=== PATIENT | male | born 1960 | race Caucasian/White ===

== ENCOUNTER 2017-01-21 09:22 | Emergency (ER) | payer MEDICAID ==
[2017-01-21 09:22] VITALS: PULSE 85; BMI 32.1
[2017-01-21] MEDS ORDERED: Oxycodone/Acetaminophen 5/325 mg Tab ONE (12:00)
[2017-01-21] MEDS ORDERED: Oxycodone/Acetaminophen 5/325 mg Tab PO STA (12:00)
--- NOTE | 2017-01-21 12:38 | C.PDOC ---
History Of Present Illness Juan Lozano is a 56 year old male, whose past medical history includes arthritis, asthma, atrial fibrillation, arrhythmia, CHF, and HTN, presents to the emergency department complaining of right knee pain that developed today. Patient reports he was walking all day yesterday in [place] and today the symptoms began. Patient notes there was no trauma. Patient denies fall, paresthesias, focal weakness, sensory deficit. Patient is with full range of motion in affected extremity. Chief Complaint (Nursing): Lower Extremity Problem/Injury History Per: Patient History/Exam Limitations: no limitations Onset/Duration Of Symptoms: Days (1 day ago) Current Symptoms Are (Timing): Still Present Severity: None - Hip Description Of Injury: denies: Fell - Knee Description Of Injury: denies: Fell - Ankle/Foot Description Of Injury: denies: Fell Past Medical History Reviewed: Historical Data, Nursing Documentation, Vital Signs Vital Signs: Last Vital Signs Temp 99.2 F 01/21/17 13:04 Pulse 106 H 01/21/17 13:04 Resp 20 01/21/17 13:04 BP 114/73 01/21/17 13:04 Pulse Ox 98 01/21/17 14:46 - Medical History PMH: Arthritis, Asthma, Atrial Fibrillation, Back Problems (Herniated Disc), Cardia Arrhythmia, CHF, HTN, Hypercholesterolemia, Kidney Stones, Chronic Kidney Disease, TIA Surgical History: Back Surgery, CABG, Coronary Stent, Pacemaker (2 yrs ago) - [facility] Procedures AUTOMATIC IMPLANT CARDIOVERTER/DEFIBRILLATOR (AICD) CHECK (02/24/15) INFLUENZA VACCINATION (06/13/13) VACCINATION NEC (06/13/13) Family History: States: Unknown Family Hx, CAD, Diabetes - Social History Hx Tobacco Use: No Hx Alcohol Use: No (socially) Hx Substance Use: Yes (15-20 years ago) - Immunization History Hx Tetanus Toxoid Vaccination: No Hx Influenza Vaccination: Yes Hx Pneumococcal Vaccination: No Review Of Systems Except As Marked, All Systems Reviewed And Found Negative. Constitutional: Negative for: Fever Cardiovascular: Negative for: Chest Pain Respiratory: Negative for: Shortness of Breath Gastrointestinal: Negative for: Abdominal Pain Musculoskeletal: Positive for: Leg Pain (right knee pain) Neurological: Negative for: Dizziness Physical Exam - Physical Exam Appears: Well, No Acute Distress Skin: Normal Color, Warm, Dry Head: Atraumatic, Normacephalic Eye(s): bilateral: Normal Inspection, PERRL, EOMI Nose: Normal Oral Mucosa: Moist Throat: Normal Neck: Normal Cardiovascular: Rhythm Regular Respiratory: Normal Breath Sounds Gastrointestinal/Abdominal: Normal Exam Back: Normal Inspection Extremity: Normal ROM, Tenderness (mild tenderness on the right knee), Other ( 3cm erythema on the right knee) ED Course And Treatment O2 Sat by Pulse Oximetry: 98 - Radiology CXR: Read By Radiologist Medical Decision Making Medical Decision Makin01/21/2017 Plans: -- Right knee X-ray -- Keflex, Mupirocin, and Oxycodone Progress Notes: Patient will follow up with orthopedist. 01/21/2017 12:50 Right knee X-ray: Creator : Juan Baldwin MD Findings:Mild medial compartment joint space narrowing. Mild patellofemoral compartment joint space narrowing. Small suprapatellar joint effusion. On the frontal view, there is some mild sclerosis along the posterior cortex of the proximal fibula, nonspecific. Impression: Mild medial compartment joint space narrowing. Mild patellofemoral compartment joint space narrowing. Small suprapatellar joint effusion. On the frontal view, there is some mild sclerosis along the posterior cortex of the proximal fibula, nonspecific. If pain persists, consider MRI. Knee immobilizer and crutches provided by CP. Patient was d/c home with PMD and Ortho follow up. Disposition - Disposition Referrals: Devin Nunez III, MD [Staff Provider] - Luis Fernando Robertson MD [Staff Provider] - Disposition: HOME/ ROUTINE Disposition Time: 12:35 Condition: STABLE Additional Instructions: Follow up with your PMD and Orthopedist within 1-2 days. Return to ED immediately if feel worse. Prescriptions: Mupirocin 2% Ointment [Bactroban Ointment] 1 appl TP BID #1 tube Cephalexin [cephalexin] 500 mg PO Q6 #28 cap oxyCODONE/Acetaminophen [Percocet 5/325 mg Tab] 1 tab PO QID PRN #20 tab PRN Reason: Pain Instructions: Knee Pain (ED) Forms: [facility] (Frisian) - Clinical Impression Clinical Impression: Knee pain - Scribe Statement The provider has reviewed the documentation as recorded by the Scribe 01/21/2017 Scribe Attestation: Maisha Alstoniblupe Attestation: All medical record entries made by the Scribe were at my direction and personally dictated by me. I have reviewed the chart and agree that the record accurately reflects my personal performance of the history, physical exam, medical decision making, and the department course for this patient. I have also personally directed, reviewed, and agree with the discharge instructions and disposition.
--- NOTE | 2017-01-21 12:45 | RAD ---
Right knee three views History: Pain. Comparison: None available. Findings: Mild medial compartment joint space narrowing. Mild patellofemoral compartment joint space narrowing. Small suprapatellar joint effusion. On the frontal view, there is some mild sclerosis along the posterior cortex of the proximal fibula, nonspecific. Impression: Mild medial compartment joint space narrowing. Mild patellofemoral compartment joint space narrowing. Small suprapatellar joint effusion. On the frontal view, there is some mild sclerosis along the posterior cortex of the proximal fibula, nonspecific. If pain persists, consider MRI.
[2017-01-21 13:05] VITALS: BP 114/73; PULSE 106; RESP 20; TEMP 99.2
[2017-01-21 14:38] VITALS: O2SAT 98
== END 2017-01-21 13:10 | disposition home or self-care (01) ==
LOC: C.ER 09:22
DX: M25.561 Pain in right knee (principal)

== ENCOUNTER 2017-02-27 08:03 | Inpatient (IN) | payer MEDICARE, MEDICAID ==
[2017-02-27 08:04] VITALS: PULSE 85; BMI 32.1
[2017-02-27] MEDS ORDERED: Sodium Chloride 0.9% 1,000 ML IV ONE (08:19)
[2017-02-27] MEDS ORDERED: DiphenhydrAMINE 50 mg/ml Inj IVP STA (08:20)
[2017-02-27] MEDS ORDERED: Albuterol 0.083% Inhal Sol (2.5 mg/3 mL) UD INH STA (08:21)
[2017-02-27] MEDS ORDERED: DiphenhydrAMINE 50 mg/ml Inj ONE (08:22)
[2017-02-27] MEDS ORDERED: Albuterol 0.083% Inhal Sol (2.5 mg/3 mL) UD ONE (08:33)
[2017-02-27] MEDS ORDERED: Sodium Chloride 0.9% 1,000 ML ONE (08:33)
--- NOTE | 2017-02-27 08:34 | C.PDOC ---
History Of Present Illness NEW ONSET TONGUE, MOUTH SWELLING AND DYSPHAGIA SINCE LAST NIGHT. CONTINUOUS, WORSENING THIS MORNING. ON LISINOPRIL. LAST DOSE LAST NIGHT. +VOICE CHANGE. HO ASTHMA BUT DENIES ASTHMA EXAC. DENIES ITCH, OTHER ASSOC SWELL. NPO SINCE 0700 past medical history includes arthritis, asthma, atrial fibrillation, arrhythmia , CHF, and HTN EXAM MILD DIST NONTOXIC HEENT +ANGIOEDEMA LIPS, TONGUE. UNABLE TO VISUALIZE UVULA. NO DROOL. +SCRATCHY VOICE. MMM NECK SUPPLE, NO STRIDOR LUNGS CTA B/L NO W/R/R CV RRR NO EDEMA NO HIVES WARM DRY REMAINDER NEG Time Seen by Provider: 02/27/17 08:18 Chief Complaint (Nursing): Allergic Reaction History Per: Patient History/Exam Limitations: no limitations Onset/Duration Of Symptoms: Days Current Symptoms Are (Timing): Worse Possible Cause: Unknown Associated Symptoms: Swelling Recent travel outside of the [place]: No Past Medical History Reviewed: Historical Data, Nursing Documentation, Vital Signs Vital Signs: Last Vital Signs Temp 98.4 F 02/27/17 08:14 Pulse 84 02/27/17 09:44 Resp 18 02/27/17 09:44 BP 125/83 02/27/17 09:44 Pulse Ox 95 02/27/17 09:50 - Medical History PMH: Arthritis, Asthma, Atrial Fibrillation, Back Problems (Herniated Disc), Cardia Arrhythmia, CHF, HTN, Hypercholesterolemia, Kidney Stones, Chronic Kidney Disease, TIA Surgical History: Back Surgery, CABG, Coronary Stent, Pacemaker (2 yrs ago) - [facility] Procedures AUTOMATIC IMPLANT CARDIOVERTER/DEFIBRILLATOR (AICD) CHECK (02/24/15) INFLUENZA VACCINATION (06/13/13) VACCINATION NEC (06/13/13) Family History: States: CAD, Diabetes - Social History Hx Tobacco Use: No Hx Alcohol Use: No (socially) Hx Substance Use: Yes (15-20 years ago) - Immunization History Hx Tetanus Toxoid Vaccination: No Hx Influenza Vaccination: Yes Hx Pneumococcal Vaccination: No Review Of Systems Except As Marked, All Systems Reviewed And Found Negative. Constitutional: Negative for: Fever, Chills ENT: Positive for: Other (TONGUE, MOUTH SWELLING; DYSPHAGIA) Cardiovascular: Negative for: Chest Pain Respiratory: Negative for: Cough, Shortness of Breath, Wheezing Gastrointestinal: Negative for: Nausea, Vomiting, Abdominal Pain Musculoskeletal: Negative for: Neck Pain Skin: Negative for: Rash Neurological: Negative for: Headache, Dizziness Physical Exam - Physical Exam Appears: Non-toxic, Other (MILD DISTRESS) Skin: Warm, Dry, Other (NO HIVES ) Head: Atraumatic, Normacephalic, Other Eye(s): bilateral: Normal Inspection, PERRL, EOMI Ear(s): Bilateral: Normal Nose: Normal Oral Mucosa: Moist Tongue: Other ( +ANGIOEDEMA ) Lips: Other ( +ANGIOEDEMA ) Throat: Other (UNABLE TO VISUALIZE UVULA. NO DROOL. +SCRATCHY VOICE. ) Neck: Normal ROM, Supple Chest: Symmetrical Cardiovascular: Rhythm Regular, No Edema Respiratory: Normal Breath Sounds, No Rales, No Rhonchi, No Stridor, No Wheezing Gastrointestinal/Abdominal: Normal Exam, Soft Back: Normal Inspection Extremity: Normal ROM, Capillary Refill (< 2 SEC.) Neurological/Psych: Oriented x3, Normal Speech, Normal Cognition ED Course And Treatment - Laboratory Results Result Diagrams: 02/27/17 08:40 02/27/17 08:40 ECG: Interpreted By Wy ECG Rhythm: A Paced ECG Interpretation: No Acute Changes Rate From EC (BPM) O2 Sat by Pulse Oximetry: 95 (RA) Pulse Ox Interpretation: Normal - Radiology CXR: Interpreted by Wy CXR Interpretation: Yes: No Acute Disease Progress - Re-Evaluation Re-evaluation Note: 02/27/17 08:25 D/W DR SALDAÑA ANESTHESIA ASSISTANT [facility] ATTORNEY AWARE OF ER FINDINGS WILL EVAL IN ER 02/27/17 08:34 EXAM UNCH VSS. 02/27/17 08:48 D/W PMD WILL ADMIT ANESTHESIA RECOMMEND SURGERY CONSULT 02/27/17 08:55 SURGERY RESIDENT NOTIFIED 0 02/27/17 09:43 PS FEELS BETTER. VOICE UNCH ?IMPROVE ANGIOEDEMA. VSS. PENDING CALLBACK ICU 02/27/17 11:02 CLEARED FOR TELE S/P DR PRIYA BENJAMIN - Data Reviewed Data Reviewed: Lab, Diagnostic imaging, EKG, Old records - Critical Care Citical Care: Excluding Proc Time Critical Care Time: 120 minutes - Continuity of Care Discussed patient case with:: Patient, PMD Discussed pt. case with information systems consultant/specialty: Anesthesiology, General Surgery Disposition Counseled Patient/Family Regarding: Studies Performed, Diagnosis - Disposition Disposition: HOSPITALIZED Disposition Time: 09:49 Condition: STABLE Forms: [employer] (Khmer) - POA Present On Arrival: None - Clinical Impression Clinical Impression: Angioedema, Allergy to NGUYEN inhibitors - Scribe Statement The provider has reviewed the documentation as recorded by the Scribe SM Provider Attestation: All medical record entries made by the Scribe were at my direction and personally dictated by me. I have reviewed the chart and agree that the record accurately reflects my personal performance of the history, physical exam, medical decision making, and the department course for this patient. I have also personally directed, reviewed, and agree with the discharge instructions and disposition. Decision To Admit - Pt Status Changed To: Hospital Disposition Of: Inpatient - Admit Certification Admit to Inpatient:: After my assessment, the patient will require hospitalization for at least two midnights. This is because of the severity of symptoms shown, intensity of services needed, and/or the medical risk in this patient being treated as an outpatient. - InPatient: Physician Admission Certification:: SEE NOTE - . Bed Request Type: Telemetry Admitting Physician: Luis Fernando Robertson Patient Diagnosis: Angioedema, Allergy to NGUYEN inhibitors
[2017-02-27 08:45] LABS: BASO % 0.4 % (0.0-2.0); EOS # 0.3 K/uL (0.0-0.7); EOS % 4.4 % (0.0-4.0); HEMATOCRIT 40.8 % (35.0-51.0); LYMPH # 2.1 K/uL (1.0-4.3); LYMPH % 29.1 % (20.0-40.0); MEAN CORPUSCULAR HEMOGLOBIN 33.7 pg (27.0-31.0); MEAN CORPUSCULAR HGB CONC 34.7 g/dL (33.0-37.0); MEAN PLATELET VOLUME 8.2 fL (7.2-11.7); MONO # 0.4 K/uL (0.0-0.8); MONO % 5.6 % (0.0-10.0); RED CELL DISTRIBUTION WIDTH 12.4 % (11.5-14.5); WHITE BLOOD COUNT 7.1 K/uL (4.8-10.8)
[2017-02-27 08:56] LABS: CHLORIDE 102 mmol/L (98-107); POTASSIUM 3.6 mmol/L (3.6-5.2); SODIUM 139 mmol/L (132-148)
[2017-02-27 08:57] LABS: INR 1.2
[2017-02-27 08:58] LABS: BILIRUBIN,TOTAL 0.9 mg/dL (0.2-1.3); GFR AFRICAN-AMERICAN > 60
[2017-02-27 08:59] LABS: ALB/GLOB RATIO 1.4 (1.0-2.1); ALKALINE PHOSPHATASE 55 U/L (38-126); ALT/SGPT 45 U/L (21-72); AST/SGOT 28 U/L (17-59); BLOOD UREA NITROGEN 15 mg/dL (9-20); CALCIUM 8.7 mg/dl (8.6-10.4); CARBON DIOXIDE 26 mmol/L (22-30); GLUCOSE,RANDOM 99 mg/dL (75-110); TOTAL PROTEIN 7.2 g/dL (6.3-8.3)
--- NOTE | 2017-02-27 10:35 | RAD ---
PROCEDURE: CHEST RADIOGRAPH, 1 VIEW HISTORY: Shortness of breath COMPARISON: 06/21/2015 FINDINGS: LUNGS: Patchy increased consolidative changes in the left mid to lower lung zone as well as the right infrahilar region. Right hilar prominence. Diffuse increased interstitial lung markings. Cardiomegaly. Left-sided pacemaker. PLEURA: As above. CARDIOVASCULAR: As above. OSSEOUS STRUCTURES: Degenerative changes in the spine and shoulders. VISUALIZED UPPER ABDOMEN: Normal. OTHER FINDINGS: None. IMPRESSION: Patchy increased consolidative changes in the left mid to lower lung zone as well as the right infrahilar region. Right hilar prominence. Diffuse increased interstitial lung markings. Cardiomegaly. Left-sided pacemaker.
--- NOTE | 2017-02-27 16:07 | CP.PCM.HP ---
History of Present Illness - History of Present Illness History of Present Illness: 56 years old male with PMHx significant tfor HTN, Atrial Fibrillation and AICD placement. Patient presents to ER for eyelids, tongue and lips swelling the night prior to admission. Patient denies headache, chest pain, shortness of breath, nausea, vomiting, abdominal pain, diarrhea or urinary symptoms. Present on Admission - Present on Admission Any Indicators Present on Admission: No Past Patient History - Infectious Disease Hx of Infectious Diseases: None - Past Medical History & Family History Past Medical History?: Yes - Past Social History Smoking Status: Former Smoker - CARDIAC Hx Atrial Fibrillation: Yes Hx Cardia Arrhythmia: Yes Hx Congestive Heart Failure: Yes Hx Hypercholesterolemia: Yes Hx Hypertension: Yes Hx Pacemaker: Yes (2 yrs ago) - PULMONARY Hx Asthma: Yes - NEUROLOGICAL Hx Transient Ischemic Attacks (TIA): Yes - HEENT Hx HEENT Problems: No - RENAL Hx Chronic Kidney Disease: Yes Hx Kidney Stones: Yes - ENDOCRINE/METABOLIC Hx Endocrine Disorders: No - HEMATOLOGICAL/ONCOLOGICAL Hx Blood Disorders: No - INTEGUMENTARY Hx Dermatological Problems: No - MUSCULOSKELETAL/RHEUMATOLOGICAL Hx Arthritis: Yes - GASTROINTESTINAL Hx Gastrointestinal Disorders: No - GENITOURINARY/GYNECOLOGICAL Hx Genitourinary Disorders: No - PSYCHIATRIC Hx Substance Use: Yes (15-20 years ago) - SURGICAL HISTORY Hx Coronary Artery Bypass Graft: Yes Hx Coronary Stent: Yes - ANESTHESIA Hx Anesthesia: Yes Hx Anesthesia Reactions: No Hx Malignant Hyperthermia: No Meds Allergies/Adverse Reactions: Allergies Allergy/AdvReac Type Severity Reaction Status Date / Time NGUYEN Inhibitors Allergy Severe ANAPHYLAXIS Verified 02/27/17 09:13 Physical Exam - Head Exam Head Exam: ATRAUMATIC, NORMAL INSPECTION, NORMOCEPHALIC - Eye Exam Eye Exam: EOMI, Normal appearance, PERRL - ENT Exam ENT Exam: Mucous Membranes Moist, Normal Exam - Neck Exam Neck exam: Positive for: Full Rom, Normal Inspection - Respiratory Exam Respiratory Exam: Clear to Auscultation Bilateral, NORMAL BREATHING PATTERN - Cardiovascular Exam Cardiovascular Exam: REGULAR RHYTHM, +S1, +S2 - GI/Abdominal Exam GI & Abdominal Exam: Normal Bowel Sounds, Soft - Extremities Exam Extremities exam: Positive for: full ROM, normal inspection - Back Exam Back exam: FULL ROM, NORMAL INSPECTION - Psychiatric Exam Psychiatric exam: Normal Affect, Normal Mood - Skin Skin Exam: Dry, Intact, Normal Color Results - Vital Signs Recent Vital Signs: Last Vital Signs Temp 98.4 F 02/27/17 08:14 Pulse 67 02/27/17 14:08 Resp 18 02/27/17 15:59 BP 120/69 02/27/17 14:08 Pulse Ox 98 02/27/17 15:59 - Labs Result Diagrams: 02/27/17 08:40 02/27/17 08:40 Assessment & Plan (1) Angioedema Assessment and Plan: Angioedema. Anaphylaxis. Most likely due to NGUYEN Inhibitor. H1 krystin. H2 antogonist. Corticosteroids. IV fluids. D/C Lisinopril. Status: Acute Priority: High Onset Date: ~02/26/17 (2) Atrial fibrillation with RVR Assessment and Plan: Continue same treatment. Status: Acute (3) HTN (hypertension) Assessment and Plan: D/C Lisinopril. Continue same treatment. Start Amlodipine. Status: Chronic
[2017-02-27 21:08] VITALS: RESP 20
--- NOTE | 2017-02-28 13:02 | CARD ---
APPROVED REPORT EKG Measurement Heart [id number] <Conclusion> Atrial-sensed ventricular-paced rhythm Abnormal ECG
--- NOTE | 2017-02-28 17:12 | CP.PCM.DIS ---
Provider - Provider Date of Admission: 02/27/17 11:03 Attending physician: Luis Fernando Robertson MD Time Spent in preparation of Discharge (in minutes): 30 Diagnosis - Discharge Diagnosis (1) Angioedema Status: Resolved Priority: High Onset Date: ~02/26/17 (2) Atrial fibrillation with RVR Status: Chronic (3) HTN (hypertension) Status: Chronic Hospital Course - Lab Results Lab Results: Most Recent Lab Values WBC 7.1 K/uL (4.8-10.8) 02/27/17 08:40 RBC 4.20 Mil/uL (4.40-5.90) L 02/27/17 08:40 Hgb 14.2 g/dL (12.0-18.0) 02/27/17 08:40 Hct 40.8 % (35.0-51.0) 02/27/17 08:40 MCV 97.0 fL (80.0-94.0) H D 02/27/17 08:40 MCH 33.7 pg (27.0-31.0) H 02/27/17 08:40 MCHC 34.7 g/dL (33.0-37.0) 02/27/17 08:40 RDW 12.4 % (11.5-14.5) 02/27/17 08:40 Plt Count 178 K/uL (130-400) 02/27/17 08:40 MPV 8.2 fL (7.2-11.7) 02/27/17 08:40 Neut % (Auto) 60.5 % (50.0-75.0) 02/27/17 08:40 Lymph % (Auto) 29.1 % (20.0-40.0) 02/27/17 08:40 Brown % (Auto) 5.6 % (0.0-10.0) 02/27/17 08:40 Eos % (Auto) 4.4 % (0.0-4.0) H 02/27/17 08:40 Baso % (Auto) 0.4 % (0.0-2.0) 02/27/17 08:40 Neut # 4.3 K/uL (1.8-7.0) 02/27/17 08:40 Lymph # 2.1 K/uL (1.0-4.3) 02/27/17 08:40 Brown # 0.4 K/uL (0.0-0.8) 02/27/17 08:40 Eos # 0.3 K/uL (0.0-0.7) 02/27/17 08:40 Baso # 0.0 K/uL (0.0-0.2) 02/27/17 08:40 PT 13.3 SECONDS (9.7-12.2) H 02/27/17 08:40 INR 1.2 02/27/17 08:40 APTT 35 SECONDS (21-34) H 02/27/17 08:40 Sodium 139 mmol/L (132-148) 02/27/17 08:40 Potassium 3.6 mmol/L (3.6-5.2) 02/27/17 08:40 Chloride 102 mmol/L (98-107) 02/27/17 08:40 Carbon Dioxide 26 mmol/L (22-30) 02/27/17 08:40 Anion Gap 14 (10-20) 02/27/17 08:40 BUN 15 mg/dL (9-20) 02/27/17 08:40 Creatinine 0.8 MG/DL (0.8-1.5) 02/27/17 08:40 Est GFR ( Amer) > 60 02/27/17 08:40 Est GFR (Non-Af Amer) > 60 02/27/17 08:40 Random Glucose 99 mg/dL (75-110) 02/27/17 08:40 Calcium 8.7 mg/dl (8.6-10.4) 02/27/17 08:40 Total Bilirubin 0.9 mg/dL (0.2-1.3) 02/27/17 08:40 AST 28 U/L (17-59) 02/27/17 08:40 ALT 45 U/L (21-72) 02/27/17 08:40 Alkaline Phosphatase 55 U/L (38-126) 02/27/17 08:40 Total Protein 7.2 g/dL (6.3-8.3) 02/27/17 08:40 Albumin 4.1 g/dL (3.5-5.0) 02/27/17 08:40 Globulin 3.0 gm/dL (2.2-3.9) 02/27/17 08:40 Albumin/Globulin Ratio 1.4 (1.0-2.1) 02/27/17 08:40 - Hospital Course Hospital Course: 56 years old female with PMHx significant for HTN and Atrial Fibrillation. Patient admitted for Angioedema due to NGUYEN Inhibitor. Patient remained on observation for 24 hours with IV fluids. Patient's condition improved and he was discharged home. Discontinue Lisinopril. Start Amlodipine. D /C Simvastatin. Start Atorvastatin. Start Benadryl + Cimetidine. Discharge Exam - Head Exam Head Exam: ATRAUMATIC, NORMAL INSPECTION, NORMOCEPHALIC - Eye Exam Eye Exam: EOMI, Normal appearance, PERRL - Respiratory Exam Respiratory Exam: Clear to PA & Lateral, NORMAL BREATHING PATTERN - Cardiovascular Exam Cardiovascular Exam: REGULAR RHYTHM, +S1, +S2 - GI/Abdominal Exam GI & Abdominal Exam: Normal Bowel Sounds, Unremarkable - Extremities Exam Extremities exam: full ROM - Neurological Exam Neurological exam: Alert, CN II-XII Intact, Normal Gait, Oriented x3, Reflexes Normal - Psychiatric Exam Psychiatric exam: Normal Affect, Normal Mood - Skin Skin Exam: Dry, Intact, Normal Color Discharge Plan - Discharge Medications Prescriptions: DiphenhydrAMINE [Benadryl] 50 mg PO BIDHS #30 cap Cimetidine 200 mg PO BID #30 tablet Atorvastatin [Lipitor] 40 mg PO HS #30 tab amLODIPine [Norvasc] 2.5 mg PO DAILY #30 tab - Follow Up Plan Condition: STABLE Disposition: HOME/ ROUTINE Instructions: Hypertension (DC), Hypertension (GEN)
[2017-02-28 18:46] VITALS: BP 113/78
[2017-02-28 18:50] VITALS: PULSE 84; TEMP 98; O2SAT 96
== END 2017-02-28 19:08 | disposition home or self-care (01) | DRG 916 ==
LOC: C.ER 08:03 → C.9E 11:03 → C.6T 14:34
PROVIDERS: ADMIT Internal Medicine; ATTEND Internal Medicine
DX: T78.3XXA Angioneurotic edema, initial encounter (principal); T46.4X5A Adverse effect of angiotensin-converting-enzyme inhibitors, initial encounter; E11.22 Type 2 diabetes mellitus with diabetic chronic kidney disease; I13.0 Hypertensive heart and chronic kidney disease with heart failure and stage 1 through stage 4 chronic kidney disease, or unspecified chronic kidney disease; I50.9 Heart failure, unspecified; I48.91 Unspecified atrial fibrillation; R13.10 Dysphagia, unspecified; I25.10 Atherosclerotic heart disease of native coronary artery without angina pectoris; E78.00 Pure hypercholesterolemia, unspecified; N18.9 Chronic kidney disease, unspecified; J45.909 Unspecified asthma, uncomplicated; Z86.73 Personal history of transient ischemic attack (TIA), and cerebral infarction without residual deficits; Z87.891 Personal history of nicotine dependence; Z87.442 Personal history of urinary calculi; Z95.1 Presence of aortocoronary bypass graft; Z95.5 Presence of coronary angioplasty implant and graft; Z95.810 Presence of automatic (implantable) cardiac defibrillator

== ENCOUNTER 2018-01-14 08:14 | Emergency (ER) | payer MEDICARE, MEDICAID ==
[2018-01-14 08:15] VITALS: PULSE 85; BMI 32.1
[2018-01-14 08:42] VITALS: PULSE 69; O2SAT 97
--- NOTE | 2018-01-14 08:56 | C.PDOC ---
History Of Present Illness 57 year old male with PMH of CAD, arthritis, hypertension, and pacemaker complains of headache for 3 days that radiates to left sided neck, left arm and down to his knee. Patient took aspirin with no relief. Pain is worse in the morning and at night. Additional complaints include fever of 101.3 two nights prior with feeling light headedness and blurred vision. He denies any shortness of breath, chest pain, cough, wheezing, nausea, vomiting or diarrhea. Time Seen by Provider: 01/14/18 08:34 Chief Complaint (Nursing): Headache History Per: Patient History/Exam Limitations: no limitations Onset/Duration Of Symptoms: Days Current Symptoms Are (Timing): Still Present Associated Symptoms: Blurred Vision. denies: Nausea, Vomiting Past Medical History Reviewed: Historical Data, Nursing Documentation, Vital Signs Vital Signs: Last Vital Signs Temp 97.7 F 01/14/18 11:47 Pulse 69 01/14/18 11:47 Resp 18 01/14/18 11:47 BP 134/86 01/14/18 11:47 Pulse Ox 97 01/14/18 12:18 - Medical History PMH: Arthritis, Asthma, Atrial Fibrillation, Back Problems (Herniated Disc), Cardia Arrhythmia, CHF, HTN, Hypercholesterolemia, Kidney Stones, Chronic Kidney Disease, TIA Surgical History: Back Surgery, CABG, Coronary Stent, Pacemaker (2 yrs ago) - [facility] Procedures AUTOMATIC IMPLANT CARDIOVERTER/DEFIBRILLATOR (AICD) CHECK (02/24/15) INFLUENZA VACCINATION (06/13/13) VACCINATION NEC (06/13/13) Family History: States: CAD, Diabetes - Social History Hx Tobacco Use: No Hx Alcohol Use: Yes (beer q weekend) Hx Substance Use: No - Immunization History Hx Tetanus Toxoid Vaccination: No Hx Influenza Vaccination: Yes Hx Pneumococcal Vaccination: No Review Of Systems Constitutional: Positive for: Fever. Negative for: Chills Eyes: Positive for: Vision Change Cardiovascular: Positive for: Light Headedness. Negative for: Chest Pain, Palpitations Respiratory: Negative for: Cough, Shortness of Breath Gastrointestinal: Negative for: Nausea, Vomiting, Diarrhea Musculoskeletal: Positive for: Neck Pain, Arm Pain (Left arm) Neurological: Positive for: Headache Physical Exam - Physical Exam Appears: Non-toxic, No Acute Distress Skin: Warm, Dry Head: Atraumatic, Normacephalic, No Tenderness, No Swelling, No Laceration Eye(s): bilateral: Normal Inspection, PERRL, EOMI Nose: Normal Oral Mucosa: Moist Neck: Paracervical Tenderness (Diffused ), Other (Palpable spasm to left sided neck ) Chest: Symmetrical Cardiovascular: Rhythm Regular, No Murmur Respiratory: Normal Breath Sounds, No Rales, No Rhonchi, No Wheezing Extremity: No Deformity (Left arm ), No Swelling (Left arm ), Other (Pain with Ipsi lateral flexion ) Neurological/Psych: Oriented x3, Normal Speech, Normal Motor, Normal Sensation Gait: Steady ED Course And Treatment - Laboratory Results Result Diagrams: 01/14/18 09:34 01/14/18 09:34 Lab Interpretation: No Acute Changes ECG: Interpreted By Me, Viewed By Me ECG Rhythm: Sinus Rhythm ECG Interpretation: No Acute Changes Rate From EC O2 Sat by Pulse Oximetry: 97 (RA) Pulse Ox Interpretation: Normal - CT Scan/US CT C-spine Other Rad Studies (CT/US): Read By Radiologist, Radiology Report Reviewed CT/US Interpretation: Accession No. : [id number]. Patient Name / ID : MAYTE HUGO / [id number]. Exam Date : 01/14/2018 09:44:36 ( Approved ). Study Comment : Sex / Age : M / 57Y. Creator : Tere Durant. Dictator : Manju Bonilla MD. Elementary Teacher : Core Drill Operator : Manju Bonilla MD. Approver2 : Report Date : 01/14/2018 09:50:28. My Comment : . Date of service: 01/14/2018. PROCEDURE: CT Cervical Spine without contrast. HISTORY : Neck pain. COMPARISON: None available. TECHNIQUE: Axial computed tomography images were obtained of the cervical spine without the use of intravenous contrast. Coronal and sagittal reformatted images were created and reviewed. Radiation dose: Total exam DLP = 435.90 mGy-cm. This CT exam was performed using one or more of the following dose reduction techniques: Automated exposure control, adjustment of the mA and/or kV according to patient size, and/or use of iterative reconstruction technique. FINDINGS: VERTEBRAE: There is degenerative 2 mm retrolisthesis of C4 on C5. There is straightening of the cervical spine with loss of normal cervical lordosis. Vertebral height is normal. There is no acute fracture or traumatic anterior listhesis. The craniocervical junction is normal. The atlantoaxial joint is normal. DISCS/ SPINAL CANAL/NEURAL FORAMINA: There is mild multilevel degenerative disc disease due to combination of disc osteophyte complexes, uncovertebral joint hypertrophy and multilevel facet arthropathy, worse at C4-5 with moderate to severe neural foraminal narrowing and mild spinal canal stenosis. In the left. There is a small focus of extracranial air in the left lateral epidural space at the level of C4-5 and C6, as well as and in the medial aspect of the left 4 mm transversarium. PARASPINAL SOFT TISSUES: The paraspinous soft tissues are normal. OTHER FINDINGS: No prevertebral soft tissue thickening. The lung apices are clear. IMPRESSION: 1. No acute fracture or traumatic anterior listhesis. 2. Straightening of the cervical spine may be positional or related to muscle spasm. 3. Small focus of extracranial air in the left lateral epidural space at C4-5 an C6, so left lateral epidural and and in the medial aspect of the left foramen transversarium, in the absence of history of significant trauma this finding is likely related to degenerative disc disease. CT head Other Rad Studies (CT/US): Read By Radiologist, Radiology Report Reviewed CT/US Interpretation: Accession No. : [id number]. Patient Name / ID : MAYTE HUGO / [id number]. Exam Date : 01/14/2018 09:42:30 ( Approved ). Study Comment : Sex / Age : M / 57Y. Creator : Tere Durant. Dictator : Manju Bonilla MD. Elementary Teacher : Core Drill Operator : Manju Bonilla MD. Approver2 : Report Date : 01/14/2018 09:50:22. My Comment : . Date of service: 01/14/2018. PROCEDURE: CT HEAD WITHOUT CONTRAST. HISTORY: left side throbbing headache, dizzy. COMPARISON: 06/23/2015. TECHNIQUE: Axial computed tomography images were obtained through the head/brain without intravenous contrast. Radiation dose: Total exam DLP = 842.27 mGy-cm. This CT exam was performed using one or more of the following dose reduction techniques: Automated exposure control, adjustment of the mA and/or kV according to patient size, and/or use of iterative reconstruction technique. FINDINGS: HEMORRHAGE: No intracranial hemorrhage. BRAIN: Epstein-white matter differentiation is preserved. There is no mass, mass effect or abnormal extra- axial fluid collection. There is no territorial infarction. The midline sagittal structures are normal. VENTRICLES: The ventricles are normal in size , shape and configuration. CALVARIUM: The skull base and calvarium are normal. PARANASAL SINUSES: Predominantly clear. MASTOID AIR CELLS: Predominantly clear. OTHER FINDINGS: None. IMPRESSION: No acute intracranial abnormality. If there is a persistent focal neurologic deficit and an ongoing clinical concern for acute infarction, an MRI of the brain without intravenous contrast would be a more sensitive modality for evaluation of hyperacute/acute ischemic infarction. Medical Decision Making Medical Decision Making: Impression: Headache, neck pain Orders: * CT Head * CT cervical spine * EKG * Labs * UA * IV fluids * Reglan 10mg IV Progress: All labs reviewed with no acute findings and changes from prior visits. CT of head and neck reviewed. Head CT with no acute intracranial abnormality. CT of neck shows straightening of the cervical spine may be positional or related to muscle spasm. No acute fracture or traumatic anterior listhesis. See full report. Patient remained afebrile alert and oriented with stable vital signs during ER evaluation. On re-examination, patient is resting comfortably in no acute distress. He has no nuchal rigidity or neuro deficits. Patient reports improvement of symptoms. Discussed results with patient, and copy of report was provided. Patient feels comfortable going home and will be discharged. Patient given follow up instructions. Instructed to return to ER if symptoms worsen or new symptoms arise. Disposition Counseled Patient/Family Regarding: Diagnosis, Need For Followup, Rx Given - Disposition Referrals: Luis Fernando Robertson MD [Staff Provider] - Disposition: HOME/ ROUTINE Disposition Time: 11:14 Condition: STABLE Additional Instructions: apply heating pad to area Take pain reliever as needed Take muscle relaxant as needed Follow up with your primary medical doctor or clinic in 2-5 days for further evaluation. Prescriptions: diaZEpam [Valium] 5 mg PO Q8 #15 tab Instructions: Muscle Spasms (DC) Forms: [employer] (Urdu) - POA Present On Arrival: None - Clinical Impression Clinical Impression: Neck muscle spasm, Headache - PA / COTTON SAMPLER / Resident Statement MD/DO has reviewed & agrees with the documentation as recorded. - Scribe Statement The provider has reviewed the documentation as recorded by the Scribe Naomie Tran All medical record entries made by the Aleciaiblupe were at my direction and personally dictated by me. I have reviewed the chart and agree that the record accurately reflects my personal performance of the history, physical exam, medical decision making, and the department course for this patient. I have also personally directed, reviewed, and agree with the discharge instructions and disposition.
[2018-01-14] MEDS ORDERED: Sodium Chloride 0.9% 1,000 ML ONE (09:22)
[2018-01-14] MEDS: Sodium Chloride 0.9% 1,000 ML IV ONE (09:31)
[2018-01-14 09:38] LABS: BASO # 0.1 K/uL (0.0-0.2); BASO % 0.8 % (0.0-2.0); EOS # 0.9 K/uL (0.0-0.7); EOS % 13.4 % (0.0-4.0); LYMPH # 2.1 K/uL (1.0-4.3); LYMPH % 33.2 % (20.0-40.0); MEAN CELL VOLUME 97.8 fL (80.0-94.0); MEAN CORPUSCULAR HEMOGLOBIN 34.4 pg (27.0-31.0); MEAN CORPUSCULAR HGB CONC 35.1 g/dL (33.0-37.0); MEAN PLATELET VOLUME 8.2 fL (7.2-11.7); MONO # 0.5 K/uL (0.0-0.8); MONO % 7.9 % (0.0-10.0); NEUT # 2.9 K/uL (1.8-7.0); NEUT % 44.7 % (50.0-75.0); RBC 4.36 Mil/uL (4.40-5.90); RED CELL DISTRIBUTION WIDTH 12.4 % (11.5-14.5); WHITE BLOOD COUNT 6.4 K/uL (4.8-10.8)
[2018-01-14 09:46] LABS: INR 1.1; PROTHROMBIN TIME 11.7 SECONDS (9.7-12.2)
[2018-01-14 09:52] LABS: ALB/GLOB RATIO 1.6 (1.0-2.1); ALBUMIN 4.4 g/dL (3.5-5.0); ALT/SGPT 57 U/L (21-72); AST/SGOT 30 U/L (17-59); BLOOD UREA NITROGEN 14 mg/dL (9-20); CALCIUM 9.3 mg/dl (8.6-10.4); GFR AFRICAN-AMERICAN > 60; GFR NON-AFRICAN AMERICAN > 60
--- NOTE | 2018-01-14 10:22 | CT ---
Date of service: 01/14/2018 PROCEDURE: CT HEAD WITHOUT CONTRAST. HISTORY: left side throbbing headache, dizzy COMPARISON: 06/23/2015. TECHNIQUE: Axial computed tomography images were obtained through the head/brain without intravenous contrast. Radiation dose: Total exam DLP = 842.27 mGy-cm. This CT exam was performed using one or more of the following dose reduction techniques: Automated exposure control, adjustment of the mA and/or kV according to patient size, and/or use of iterative reconstruction technique. FINDINGS: HEMORRHAGE: No intracranial hemorrhage. BRAIN: Epstein-white matter differentiation is preserved. There is no mass, mass effect or abnormal extra-axial fluid collection. There is no territorial infarction. The midline sagittal structures are normal. VENTRICLES: The ventricles are normal in size, shape and configuration. CALVARIUM: The skull base and calvarium are normal. PARANASAL SINUSES: Predominantly clear. MASTOID AIR CELLS: Predominantly clear. OTHER FINDINGS: None. IMPRESSION: No acute intracranial abnormality. If there is a persistent focal neurologic deficit and an ongoing clinical concern for acute infarction, an MRI of the brain without intravenous contrast would be a more sensitive modality for evaluation of hyperacute/acute ischemic infarction.
--- NOTE | 2018-01-14 10:35 | CT ---
Date of service: 01/14/2018 PROCEDURE: CT Cervical Spine without contrast HISTORY: Neck pain COMPARISON: None available. TECHNIQUE: Axial computed tomography images were obtained of the cervical spine without the use of intravenous contrast. Coronal and sagittal reformatted images were created and reviewed. Radiation dose: Total exam DLP = 435.90 mGy-cm. This CT exam was performed using one or more of the following dose reduction techniques: Automated exposure control, adjustment of the mA and/or kV according to patient size, and/or use of iterative reconstruction technique. FINDINGS: VERTEBRAE: There is degenerative 2 mm retrolisthesis of C4 on C5. There is straightening of the cervical spine with loss of normal cervical lordosis. Vertebral height is normal. There is no acute fracture or traumatic anterior listhesis. The craniocervical junction is normal. The atlantoaxial joint is normal. DISCS/SPINAL CANAL/NEURAL FORAMINA: There is mild multilevel degenerative disc disease due to combination of disc osteophyte complexes, uncovertebral joint hypertrophy and multilevel facet arthropathy, worse at C4-5 with moderate to severe neural foraminal narrowing and mild spinal canal stenosis. In the left There is a small focus of extracranial air in the left lateral epidural space at the level of C4-5 and C6, as well as and in the medial aspect of the left 4 mm transversarium. PARASPINAL SOFT TISSUES: The paraspinous soft tissues are normal. OTHER FINDINGS: No prevertebral soft tissue thickening. The lung apices are clear. IMPRESSION: 1. No acute fracture or traumatic anterior listhesis. 2. Straightening of the cervical spine may be positional or related to muscle spasm. 3. Small focus of extracranial air in the left lateral epidural space at C4-5 an C6, so left lateral epidural and and in the medial aspect of the left foramen transversarium, in the absence of history of significant trauma this finding is likely related to degenerative disc disease.
[2018-01-14 11:18] LABS: URINE BILIRUBIN NEGATIVE (NEGATIVE); URINE BLOOD NEGATIVE (NEGATIVE); URINE CLARITY Clear (Clear); URINE COLOR Yellow (YELLOW); URINE GLUCOSE (UA) NORMAL (Normal); URINE LEUKOCYTE ESTERASE NEG Leu/uL (Negative); URINE PROTEIN NEGATIVE (NEGATIVE); URINE UROBILINOGEN NORMAL mg/dL (0.2-1.0)
[2018-01-14 11:47] VITALS: BP 134/86; RESP 18; TEMP 97.7
--- NOTE | 2018-01-15 14:21 | CARD ---
APPROVED REPORT Date of service: 01/14/2018 EKG Measurement Heart [id number] <Conclusion> AV dual-paced rhythm Abnormal ECG
== END 2018-01-14 12:10 | disposition home or self-care (01) ==
LOC: C.ER 08:14
DX: M62.838 Other muscle spasm (principal); R51 Headache; I13.0 Hypertensive heart and chronic kidney disease with heart failure and stage 1 through stage 4 chronic kidney disease, or unspecified chronic kidney disease; I50.9 Heart failure, unspecified; N18.9 Chronic kidney disease, unspecified; Z86.73 Personal history of transient ischemic attack (TIA), and cerebral infarction without residual deficits; Z95.1 Presence of aortocoronary bypass graft; Z95.0 Presence of cardiac pacemaker; Z95.5 Presence of coronary angioplasty implant and graft; Z87.891 Personal history of nicotine dependence
CPT/HCPCS: 70450; 72125; 80053; 81001; 85025; 85610; 85730; 93005; 96360; 99285; J2765; J7030